=== PATIENT | female | born 1955 | race Caucasian/White ===

== ENCOUNTER 2024-07-14 12:40 | Emergency (ER) | payer OTHER ==
[~2024-07-14] VITALS: Ht 162.6 cm; Wt 113.6 kg
[2024-07-14 12:53] VITALS: TEMP 98.3
[2024-07-14] MEDS: LORazepam 1 MG TABLET PO ONE (16:03)
[2024-07-14 16:28] LABS: ANION GAP 9 mmol/L (8-16); BASOPHILS % (AUTO) 0.3 % (0.0-2.0); CALCIUM, TOTAL 8.8 mg/dL (8.8-10.5); CARBON DIOXIDE 29 mmol/L (22-29); CHLORIDE 102 mmol/L (98-107); CREATININE 1.02 mg/dL (0.60-1.30); EOSINOPHILS % (AUTO) 3.9 % (1.0-6.0); GLOMERULAR FILTR. RATE CALC 54 mL/min (>60); GLUCOSE,RANDOM 102 mg/dL (70-110); HEMATOCRIT 33.4 % (36-46); LYMPHOCYTES # (AUTO) 1.2 K/uL (1.0-4.8); LYMPHOCYTES % (AUTO) 31.2 % (22.0-44.0); MEAN CORPUSCULAR HEMOGLOBIN 30.5 pg (26.0-34.0); MEAN CORPUSCULAR VOLUME 92 fL (80-100); MONOCYTES # (AUTO) 0.5 K/uL (0.1-1.0); MONOCYTES % (AUTO) 12.8 % (2.0-9.0); NEUTROPHILS % (AUTO) 51.8 % (40.0-70.0); PLATELET COUNT (AUTO) 129 K/uL (150-450); POTASSIUM 4.2 mmol/L (3.5-5.1); RED BLOOD CELL COUNT(AUTO) 3.62 MIL/uL (4.00-5.20); RED CELL DISTRIBUTION WIDTH 14.4 % (11.5-14.5); SODIUM SERUM 140 mmol/L (136-145); UREA NITROGEN, BLOOD 24 mg/dL (7-18); WHITE BLOOD COUNT (AUTO) 3.8 K/uL (4.5-11.0)
[2024-07-14 16:36] LABS: ALCOHOL, BLOOD (SERUM) < 3 mg/dL (0-10)
[2024-07-14 19:41] VITALS: BP 123/66; PULSE 61; RESP 17
== END 2024-07-14 22:26 | disposition home or self-care (01) ==
LOC: EMS 12:40
DX: R51.9 Headache, unspecified (principal); F31.9 Bipolar disorder, unspecified; E11.9 Type 2 diabetes mellitus without complications; E78.00 Pure hypercholesterolemia, unspecified; I10 Essential (primary) hypertension; Z98.890 Other specified postprocedural states
CPT/HCPCS: 99283; 80048; 85025; 36415; G0480

== ENCOUNTER 2025-04-07 08:17 | Inpatient (IN) | payer OTHER ==
[~2025-04-07] VITALS: Ht 162.6 cm; Wt 122.1 kg
[2025-04-07 09:13] LABS: BASOPHILS % (AUTO) 0.6 % (0.0-2.0); EOSINOPHILS % (AUTO) 6.4 % (1.0-6.0); HEMATOCRIT 30.4 % (36-46); HEMOGLOBIN 10.2 g/dL (12.0-16.0); LYMPHOCYTES # (AUTO) 0.7 K/uL (1.0-4.8); LYMPHOCYTES % (AUTO) 21.4 % (22.0-44.0); MEAN CORPUSCULAR HEMOGLOBIN 29.6 pg (26.0-34.0); MEAN CORPUSCULAR HGB CONC 33.5 G/dL (31.0-37.0); MEAN CORPUSCULAR VOLUME 88 fL (80-100); MONOCYTES # (AUTO) 0.4 K/uL (0.1-1.0); MONOCYTES % (AUTO) 11.8 % (2.0-9.0); NEUTROPHILS # (AUTO) 1.9 K/uL (1.8-7.7); NEUTROPHILS % (AUTO) 59.8 % (40.0-70.0); PLATELET COUNT (AUTO) 119 K/uL (150-450); RED BLOOD CELL COUNT(AUTO) 3.45 MIL/uL (4.00-5.20); RED CELL DISTRIBUTION WIDTH 15.8 % (11.5-14.5); WHITE BLOOD COUNT (AUTO) 3.1 K/uL (4.5-11.0)
[2025-04-07 09:22] LABS: ANION GAP 8 mmol/L (8-16); CALCIUM, TOTAL 8.7 mg/dL (8.8-10.5); CARBON DIOXIDE 26 mmol/L (22-29); CHLORIDE 106 mmol/L (98-107); CREATININE 0.89 mg/dL (0.60-1.30); GLOMERULAR FILTR. RATE CALC > 60 mL/min (>60); GLUCOSE,RANDOM 120 mg/dL (70-110); POTASSIUM 4.2 mmol/L (3.5-5.1); SODIUM SERUM 140 mmol/L (136-145); UREA NITROGEN, BLOOD 36 mg/dL (7-18)
[2025-04-07 09:26] LABS: ACETAMINOPHEN < 2 mcg/mL (10-30); ALBUMIN 3.1 g/dL (3.4-5.0); BILIRUBIN,DIRECT 0.1 mg/dL (0.00-0.20); BILIRUBIN,TOTAL 0.4 mg/dL (0.1-1.0); TOTAL PROTEIN, SERUM 6.6 g/dL (6.4-8.2)
[2025-04-07] MEDS ORDERED: haloperidoL 5 MG TABLET PO PRN (09:30)
[2025-04-07] MEDS ORDERED: LORazepam 2 MG TABLET PO PRN (09:30)
[2025-04-07] MEDS ORDERED: ZOLPIDEM TARTRATE 10 MG TABLET PO PRN (09:30)
[2025-04-07 09:41] LABS: ALCOHOL, BLOOD (SERUM) < 3 mg/dL (0-10)
[2025-04-07 09:52] LABS: SALICYLATE 0.3 mg/dL (2.8-20.0)
[2025-04-07 10:23] LABS: COVID AG,FIA SOURCE NASAL SWAB
[2025-04-07 10:31] LABS: GLUCOMETER DEV NAME(LOC) ERT.7; GLUCOSE,POINT OF CARE 143 MG/DL (70-110)
[2025-04-07 10:42] LABS: SARS-COV2 (COVID) ANTIGEN,FIA Negative (Negative)
[2025-04-07 11:20] LABS: GLUCOMETER DEV NAME(LOC) ERT.7; GLUCOSE,POINT OF CARE 146 MG/DL (70-110)
[2025-04-07] MEDS: KETOROLAC TROMETHAMINE 60 MG/2 ML VIAL IM ONE (11:20)
[2025-04-07 11:51] LABS: APPEARANCE,URINE CLEAR (CLEAR); BILIRUBIN,URINE NEGATIVE (NEGATIVE); COLOR,URINE COLORLESS (YELLOW); GLUCOSE, URINE (UA) >=1000 mg/dL (NEGATIVE); KETONES,URINE NEGATIVE (NEGATIVE); LEUKOCYTE ESTERASE ,URINE NEGATIVE (NEGATIVE); NITRATE,URINE NEGATIVE (NEGATIVE); OCCULT BLOOD,URINE NEGATIVE (NEGATIVE); PROTEIN,URINE NEGATIVE (NEGATIVE); SPECIFIC GRAVITIY, URINE 1.009 (1.003-1.030); UROBILINOGEN,URINE <=1.0 mg/dL (<=1.0)
[2025-04-07 11:57] LABS: AMPHET/METH SCREEN,URINE NEGATIVE (NEGATIVE); BARBITURATE SCREEN, URINE NEGATIVE (NEGATIVE); BENZODIAZEPINES SCREEN,URINE NEGATIVE (NEGATIVE); CANNABINOID SCREEN,URINE NEGATIVE (NEGATIVE); COCAINE SCREEN,URINE NEGATIVE (NEGATIVE); METHADONE SCREEN, URINE NEGATIVE (NEGATIVE); OPIATE SCREEN,URINE NEGATIVE (NEGATIVE); PHENCYCLIDINE SCREEN,URINE NEGATIVE (NEGATIVE)
[2025-04-07 12:05] LABS: ALCOHOL, URINE DRUG SCREEN NEGATIVE (NEGATIVE)
[2025-04-07 12:12] LABS: BACTERIA,URINE None Seen /HPF (None Seen); RBC,URINE None Seen /HPF (0-2); SQUAMOUS EPITHELIAL CELL,UR Rare /LPF (None Seen); WBC,URINE None Seen /HPF (0-5)
[2025-04-07] MEDS ORDERED: DEXTROSE 50%-WATER 25 GM/50 ML SYRINGE IVP PRN ×2 (13:45)
[2025-04-07] MEDS ORDERED: ONDANSETRON HCL 4 MG/2 ML VIAL IVP PRN (13:45)
[2025-04-07] MEDS ORDERED: INSULIN LISPRO 100 UNITS/ML SQ PRN ×2 (13:45)
[2025-04-07] MEDS: SODIUM CHLORIDE 0.9% 1,000 ML IV ONE (13:49)
[2025-04-07] MEDS: PEG 3350/NA SULF,BICARB,CL/KCL 4000 ML SOLUTION PO ONE (13:49)
[2025-04-07] MEDS: HEPARIN SODIUM,PORCINE 5,000 UNITS/ML VIAL SQ SCH (15:32)
[2025-04-07 16:23] VITALS: BP 106/57; PULSE 66; RESP 19; TEMP 97.3; O2SAT 98
[2025-04-07 17:50] LABS: GLUCOMETER DEV NAME(LOC) 5N.2C; GLUCOSE,POINT OF CARE 97 MG/DL (70-110)
[2025-04-07 19:45] VITALS: BP 119/60; PULSE 60; RESP 19; TEMP 97.2; O2SAT 99
[2025-04-07] MEDS: DOCUSATE SODIUM 100 MG CAPSULE PO SCH (20:30)
[2025-04-08 00:13] VITALS: BP 104/52; PULSE 62; RESP 17; TEMP 97; O2SAT 96
[2025-04-08 04:05] VITALS: BP 122/59; PULSE 62; RESP 17; TEMP 97.2; O2SAT 96
[2025-04-08] MEDS: MORPHINE SULFATE 2 MG/ML SYRINGE IVP ONE (05:05)
[2025-04-08] MEDS: ASPIRIN 81 MG CHEWABLE TABLET PO SCH (08:00)
[2025-04-08] MEDS: ATORVASTATIN CALCIUM 20 MG TABLET PO SCH (08:00)
[2025-04-08] MEDS: FAMOTIDINE 20 MG TABLET PO SCH (08:00)
[2025-04-08 08:13] VITALS: BP 115/62; PULSE 64; RESP 16; TEMP 97.6; O2SAT 96
[2025-04-08 08:15] LABS: ALANINE AMINOTRANSFERASE 18 U/L (12-78); ALBUMIN 2.7 g/dL (3.4-5.0); ALKALINE PHOSPHATASE 62 U/L (46-116); ANION GAP 7 mmol/L (8-16); ASPARTATE AMINOTRANSFERASE 19 U/L (15-37); BILIRUBIN,TOTAL 0.5 mg/dL (0.1-1.0); CALCIUM, TOTAL 8.4 mg/dL (8.8-10.5); CARBON DIOXIDE 25 mmol/L (22-29); CHLORIDE 107 mmol/L (98-107); CHOL/HDL RATIO 1.9 (3.9-5.7); CHOLESTEROL 107 mg/dL (131-200); CREATININE 0.77 mg/dL (0.60-1.30); GLOMERULAR FILTR. RATE CALC > 60 mL/min (>60); GLUCOSE,RANDOM 114 mg/dL (70-110); HDL CHOLESTEROL 55 mg/dL (40-60); LDL CHOL (CALC.) 34 mg/dL (0-130); POTASSIUM 4.5 mmol/L (3.5-5.1); SODIUM SERUM 139 mmol/L (136-145); TOTAL PROTEIN, SERUM 5.8 g/dL (6.4-8.2); TRIGLYCERIDES 91 mg/dL (15-150); UREA NITROGEN, BLOOD 34 mg/dL (7-18)
[2025-04-08 11:16] LABS: GLUCOMETER DEV NAME(LOC) 5N.2C; GLUCOSE,POINT OF CARE 124 MG/DL (70-110)
[2025-04-08 11:16] LABS: GLUCOMETER DEV NAME(LOC) 5N.2C; GLUCOSE,POINT OF CARE 112 MG/DL (70-110)
[2025-04-08 12:00] VITALS: BP 117/52; PULSE 62; RESP 18; TEMP 97.7; O2SAT 98
[2025-04-08] MEDS: ACETAMINOPHEN 325 MG TABLET PO PRN (13:40)
[2025-04-08 16:01] VITALS: BP 112/58; PULSE 65; RESP 18; TEMP 98.4; O2SAT 98
[2025-04-08 20:08] VITALS: BP 117/63; PULSE 66; RESP 19; TEMP 98.4; O2SAT 98
[2025-04-08] MEDS: KETOROLAC TROMETHAMINE 30 MG/ML VIAL IVP ONE (22:11)
[2025-04-09] VITALS (7 sets, daily range): BP systolic 120–146; BP diastolic 50–69; PULSE 57–73; RESP 17–18; TEMP 97.7–99.5; O2SAT 95–97
[2025-04-09 07:08] LABS: BASOPHILS % (AUTO) 0.3 % (0.0-2.0); EOSINOPHILS % (AUTO) 3.5 % (1.0-6.0); HEMATOCRIT 30.1 % (36-46); HEMOGLOBIN 9.9 g/dL (12.0-16.0); LYMPHOCYTES # (AUTO) 0.6 K/uL (1.0-4.8); LYMPHOCYTES % (AUTO) 16.4 % (22.0-44.0); MEAN CORPUSCULAR HEMOGLOBIN 29.3 pg (26.0-34.0); MEAN CORPUSCULAR HGB CONC 32.9 G/dL (31.0-37.0); MEAN CORPUSCULAR VOLUME 89 fL (80-100); MONOCYTES # (AUTO) 0.4 K/uL (0.1-1.0); MONOCYTES % (AUTO) 10.8 % (2.0-9.0); NEUTROPHILS # (AUTO) 2.3 K/uL (1.8-7.7); PLATELET COUNT (AUTO) 110 K/uL (150-450); RED BLOOD CELL COUNT(AUTO) 3.38 MIL/uL (4.00-5.20); RED CELL DISTRIBUTION WIDTH 15.9 % (11.5-14.5); WHITE BLOOD COUNT (AUTO) 3.4 K/uL (4.5-11.0)
[2025-04-09 07:19] LABS: ANION GAP 5 mmol/L (8-16); CALCIUM, TOTAL 8.7 mg/dL (8.8-10.5); CARBON DIOXIDE 29 mmol/L (22-29); CHLORIDE 103 mmol/L (98-107); CREATININE 0.79 mg/dL (0.60-1.30); GLOMERULAR FILTR. RATE CALC > 60 mL/min (>60); GLUCOSE,RANDOM 112 mg/dL (70-110); POTASSIUM 4.7 mmol/L (3.5-5.1); SODIUM SERUM 137 mmol/L (136-145); UREA NITROGEN, BLOOD 33 mg/dL (7-18)
[2025-04-09] MEDS: TraMADol HCL 50 MG TABLET PO PRN (13:22)
[2025-04-09 16:56] LABS: GLUCOMETER DEV NAME(LOC) 5S.2D; GLUCOSE,POINT OF CARE 108 MG/DL (70-110)
[2025-04-09 16:56] LABS: GLUCOMETER DEV NAME(LOC) 5S.2D; GLUCOSE,POINT OF CARE 111 MG/DL (70-110)
[2025-04-09 16:56] LABS: GLUCOMETER DEV NAME(LOC) 5S.2D; GLUCOSE,POINT OF CARE 116 MG/DL (70-110)
[2025-04-09 16:56] LABS: GLUCOMETER DEV NAME(LOC) 5S.2D; GLUCOSE,POINT OF CARE 110 MG/DL (70-110)
[2025-04-09 23:56] LABS: GLUCOMETER DEV NAME(LOC) 5N.1D; GLUCOSE,POINT OF CARE 124 MG/DL (70-110)
[2025-04-09 23:56] LABS: GLUCOMETER DEV NAME(LOC) 5N.1D; GLUCOSE,POINT OF CARE 121 MG/DL (70-110)
[2025-04-10 01:16] LABS: GLUCOMETER DEV NAME(LOC) 5S.2D; GLUCOSE,POINT OF CARE 125 MG/DL (70-110)
[2025-04-10 03:54] VITALS: BP 119/56; PULSE 64; RESP 18; TEMP 98.4; O2SAT 96
[2025-04-10 07:11] VITALS: BP 126/90; PULSE 66; RESP 18; TEMP 98.4; O2SAT 96
[2025-04-10 08:41] LABS: GLUCOMETER DEV NAME(LOC) 5N.2C; GLUCOSE,POINT OF CARE 114 MG/DL (70-110)
[2025-04-10 11:30] LABS: GLUCOMETER DEV NAME(LOC) 5N.2C; GLUCOSE,POINT OF CARE 106 MG/DL (70-110)
[2025-04-10 16:04] VITALS: BP 120/94; PULSE 70; RESP 18; TEMP 98.8; O2SAT 97
[2025-04-10 18:20] LABS: GLUCOMETER DEV NAME(LOC) 5S.2D; GLUCOSE,POINT OF CARE 104 MG/DL (70-110)
[2025-04-10 19:38] VITALS: BP 137/60; PULSE 66; RESP 16; TEMP 98.6; O2SAT 95
[2025-04-11 00:24] VITALS: BP 131/57; PULSE 65; RESP 17; TEMP 98.6; O2SAT 95
[2025-04-11 04:48] VITALS: BP 124/50; PULSE 66; RESP 18; TEMP 98.8; O2SAT 95
[2025-04-11 06:36] LABS: GLUCOMETER DEV NAME(LOC) 5S.2D; GLUCOSE,POINT OF CARE 123 MG/DL (70-110)
[2025-04-11 07:46] VITALS: BP 147/70; PULSE 63; RESP 18; TEMP 98.8; O2SAT 98
[2025-04-11 11:08] VITALS: BP 133/46; PULSE 63; RESP 19; TEMP 98.4; O2SAT 96
[2025-04-11 11:31] LABS: GLUCOMETER DEV NAME(LOC) 5N.2C; GLUCOSE,POINT OF CARE 133 MG/DL (70-110)
[2025-04-11 13:31] LABS: COVID AG,FIA SOURCE NASAL SWAB
[2025-04-11 13:48] LABS: SARS-COV2 (COVID) ANTIGEN,FIA Negative (Negative)
[2025-04-12] MEDS ORDERED: QUET400T13 PO (09:48)
[2025-04-12] MEDS ORDERED: FLUO40CA PO (09:48)
== END 2025-04-11 15:58 | DRG 918 ==
LOC: EMS 08:22 → EDH 14:16 → 5N 16:50 → 5S 04-08 01:59
PROVIDERS: ADMIT Internal Medicine; ATTEND Internal Medicine
DX: T43.592A Poisoning by other antipsychotics and neuroleptics, intentional self-harm, initial encounter (principal); R45.851 Suicidal ideations; F32.2 Major depressive disorder, single episode, severe without psychotic features; Z68.42 Body mass index [BMI] 45.0-49.9, adult; T39.1X2A Poisoning by 4-Aminophenol derivatives, intentional self-harm, initial encounter; Z20.822 Contact with and (suspected) exposure to COVID-19; E11.9 Type 2 diabetes mellitus without complications; F25.1 Schizoaffective disorder, depressive type; Z60.2 Problems related to living alone; E66.01 Morbid (severe) obesity due to excess calories; I10 Essential (primary) hypertension; E78.00 Pure hypercholesterolemia, unspecified; F25.9 Schizoaffective disorder, unspecified; Y92.89 Other specified places as the place of occurrence of the external cause; Z88.2 Allergy status to sulfonamides; Z83.3 Family history of diabetes mellitus
CPT/HCPCS: 80048; 80053; 80061; 80076; 80307; 81001; 82962; 83036; 85025; 93005; 93306; 96360; 96372; 97161; 97166; 97530; 97535; 99285; G0480; G0481; J1644; J1885; J2270; 36415-L1; 36415-TC

== ENCOUNTER 2025-04-11 13:07 | Inpatient (IN) | payer MEDICARE, MEDICAID ==
[~2025-04-11] VITALS: Ht 162.6 cm; Wt 126.0 kg
[2025-04-11] MEDS ORDERED: ZOLPIDEM TARTRATE 10 MG TABLET PO PRN (14:15)
[2025-04-11] MEDS ORDERED: LORazepam 2 MG TABLET PO PRN (14:15)
[2025-04-11] MEDS ORDERED: haloperidoL 5 MG TABLET PO PRN (14:15)
[2025-04-11 17:27] VITALS: BP 140/75; PULSE 67; RESP 18; TEMP 97.8; O2SAT 96
[2025-04-11] MEDS ORDERED: CloNIDine HCL 0.1 MG TABLET PO PRN (20:00)
[2025-04-11] MEDS ORDERED: GuaiFENesin/D-METHORPHAN [SUGAR-FREE] 200-20MG/10 ML SYRUP UDCUP PO PRN (20:00)
[2025-04-11] MEDS ORDERED: MAG HYDROX/ALUMINUM HYD/SIMETH ES 30 ML SUSPENSION UDCUP PO PRN (20:00)
[2025-04-11] MEDS ORDERED: LOPERAMIDE HCL 2 MG CAPSULE PO PRN (20:00)
[2025-04-11] MEDS ORDERED: ALBUTEROL SULFATE HFA 90 MCG/PUFF 8 GM INHALER IH PRN (20:00)
[2025-04-11] MEDS ORDERED: ONDANSETRON 4 MG TABLET PO PRN (20:00)
[2025-04-11] MEDS ORDERED: MAGNESIUM HYDROXIDE SUSPENSION 30 ML UDCUP PO PRN (20:00)
[2025-04-11] MEDS ORDERED: PETROLATUM,WHITE 28 GM JELLY TP PRN (20:00)
[2025-04-11] MEDS ORDERED: DOCUSATE SODIUM 100 MG CAPSULE PO PRN (20:00)
[2025-04-11] MEDS ORDERED: NICOTINE 14 MG/24 HOUR PATCH TD PRN (20:00)
[2025-04-11 21:00] VITALS: BP 124/60; PULSE 71; RESP 18; TEMP 97.6; O2SAT 97
[2025-04-11] MEDS: ACETAMINOPHEN 325 MG TABLET PO PRN (21:03)
[2025-04-11 22:03] VITALS: RESP 18
[2025-04-12] MEDS ORDERED: DEXTROSE 50%-WATER 25 GM/50 ML SYRINGE IVP PRN (06:15)
[2025-04-12] MEDS: INSULIN LISPRO 100 UNITS/ML SQ PRN (06:54)
[2025-04-12 07:10] LABS: GLUCOMETER DEV NAME(LOC) 3EX.2; GLUCOSE,POINT OF CARE 135 MG/DL (70-110)
[2025-04-12 07:42] LABS: HEMOGLOBIN A1C 5.1 % (3.8-5.6)
[2025-04-12 07:48] LABS: CHOL/HDL RATIO 1.9 (3.9-5.7)
[2025-04-12 08:00] VITALS: BP 125/72; PULSE 64; RESP 16; TEMP 99.3; O2SAT 96
[2025-04-12] MEDS: ATORVASTATIN CALCIUM 20 MG TABLET PO SCH (08:19)
[2025-04-12] MEDS: ASPIRIN 81 MG CHEWABLE TABLET PO SCH (08:19)
[2025-04-12] MEDS: FAMOTIDINE 20 MG TABLET PO SCH (08:20)
[2025-04-12] MEDS: DOCUSATE SODIUM 100 MG CAPSULE PO SCH (08:26)
[2025-04-12] MEDS ORDERED: FLUO40CA PO (09:48)
[2025-04-12] MEDS ORDERED: QUET400T13 PO (09:48)
[2025-04-12] MEDS: FLUoxetine HCL 20 MG CAPSULE PO SCH (11:09)
[2025-04-12] MEDS: IBUPROFEN 400 MG TABLET PO PRN (12:05)
[2025-04-12 12:16] LABS: GLUCOMETER DEV NAME(LOC) 3E.I 2; GLUCOSE,POINT OF CARE 132 MG/DL (70-110)
[2025-04-12 16:46] LABS: GLUCOMETER DEV NAME(LOC) 3E.I 2; GLUCOSE,POINT OF CARE 120 MG/DL (70-110)
[2025-04-12] MEDS: QUEtiapine FUMARATE 200 MG TABLET PO SCH (21:09)
[2025-04-12 21:11] VITALS: BP 118/51; PULSE 63; RESP 18; TEMP 98.4; O2SAT 94
[2025-04-12 21:35] LABS: GLUCOMETER DEV NAME(LOC) 3E.I 2; GLUCOSE,POINT OF CARE 112 MG/DL (70-110)
[2025-04-13 06:46] LABS: GLUCOMETER DEV NAME(LOC) 3E.I 2; GLUCOSE,POINT OF CARE 118 MG/DL (70-110)
[2025-04-13] MEDS: EMPAGLIFLOZIN 25 MG TABLET PO SCH (08:29)
[2025-04-13] MEDS: PIOGLITAZONE HCL 30 MG TABLET PO SCH (08:29)
[2025-04-13] MEDS: SitaGLIPtin PHOSPHATE 100 MG TABLET PO SCH (08:29)
[2025-04-13 09:20] VITALS: BP 153/61; PULSE 62; RESP 18; TEMP 98.6; O2SAT 97
[2025-04-13 11:04] VITALS: BP 140/70; PULSE 66; RESP 18; TEMP 97; O2SAT 97
[2025-04-13] MEDS: TraMADol HCL 50 MG TABLET PO PRN (11:09)
[2025-04-13 11:45] LABS: GLUCOMETER DEV NAME(LOC) 3E.I 2; GLUCOSE,POINT OF CARE 111 MG/DL (70-110)
[2025-04-13 17:01] LABS: GLUCOMETER DEV NAME(LOC) 3E.I 2; GLUCOSE,POINT OF CARE 112 MG/DL (70-110)
[2025-04-13 17:01] LABS: GLUCOMETER DEV NAME(LOC) 3EX.2; GLUCOSE,POINT OF CARE 113 MG/DL (70-110)
[2025-04-13 20:31] LABS: GLUCOMETER DEV NAME(LOC) 3EX.2; GLUCOSE,POINT OF CARE 97 MG/DL (70-110)
[2025-04-13 21:51] VITALS: BP 141/66; PULSE 66; RESP 16; TEMP 97.5; O2SAT 100
[2025-04-14 05:46] LABS: GLUCOMETER DEV NAME(LOC) 3E.I 2; GLUCOSE,POINT OF CARE 124 MG/DL (70-110)
[2025-04-14 08:30] VITALS: BP 110/94; PULSE 68; RESP 18; O2SAT 96
[2025-04-14 11:41] LABS: GLUCOMETER DEV NAME(LOC) 3E.I 2; GLUCOSE,POINT OF CARE 102 MG/DL (70-110)
[2025-04-14 17:45] LABS: GLUCOMETER DEV NAME(LOC) 3E.I 2; GLUCOSE,POINT OF CARE 112 MG/DL (70-110)
[2025-04-14 21:20] VITALS: BP 137/60; PULSE 66; RESP 18; TEMP 98.4; O2SAT 98
[2025-04-14 22:07] VITALS: BP 137/60; PULSE 66; RESP 18; TEMP 98.4; O2SAT 98
[2025-04-14 22:16] LABS: GLUCOMETER DEV NAME(LOC) 3E.I 2; GLUCOSE,POINT OF CARE 125 MG/DL (70-110)
[2025-04-14 22:20] VITALS: RESP 18
[2025-04-15 08:31] LABS: ANION GAP 8 mmol/L (8-16); CALCIUM, TOTAL 8.7 mg/dL (8.8-10.5); CARBON DIOXIDE 28 mmol/L (22-29); CHLORIDE 109 mmol/L (98-107); GLOMERULAR FILTR. RATE CALC > 60 mL/min (>60); GLUCOSE,RANDOM 126 mg/dL (70-110); SODIUM SERUM 145 mmol/L (136-145); UREA NITROGEN, BLOOD 28 mg/dL (7-18)
[2025-04-15] MEDS: NYSTATIN 30 GM OINTMENT TP SCH (10:35)
[2025-04-15 10:40] VITALS: BP 129/65; PULSE 68; RESP 18; TEMP 97.7; O2SAT 97
[2025-04-15] MEDS: levoFLOXacin 500 MG TABLET PO SCH (11:02)
[2025-04-15 12:25] LABS: GLUCOMETER DEV NAME(LOC) 3E.I 2; GLUCOSE,POINT OF CARE 117 MG/DL (70-110)
[2025-04-15 12:30] LABS: GLUCOMETER DEV NAME(LOC) 3E.I 2; GLUCOSE,POINT OF CARE 132 MG/DL (70-110)
[2025-04-15 20:50] VITALS: BP 139/49; PULSE 70; RESP 18; TEMP 98.5; O2SAT 98
[2025-04-15 22:41] LABS: GLUCOMETER DEV NAME(LOC) 3E.I 2; GLUCOSE,POINT OF CARE 119 MG/DL (70-110)
[2025-04-15 23:15] VITALS: BP 120/76; PULSE 73; RESP 20; TEMP 97.6; O2SAT 97
[2025-04-15 23:19] VITALS: RESP 18
[2025-04-16 06:21] LABS: GLUCOMETER DEV NAME(LOC) 3E.I 2; GLUCOSE,POINT OF CARE 116 MG/DL (70-110)
[2025-04-16 09:29] VITALS: BP 135/69; PULSE 70; RESP 18; TEMP 97.7; O2SAT 96
[2025-04-16 11:50] LABS: GLUCOMETER DEV NAME(LOC) 3E.I 2; GLUCOSE,POINT OF CARE 157 MG/DL (70-110)
[2025-04-16 17:10] LABS: GLUCOMETER DEV NAME(LOC) 3E.I 2; GLUCOSE,POINT OF CARE 122 MG/DL (70-110)
[2025-04-16 20:50] LABS: GLUCOMETER DEV NAME(LOC) 3E.I 2; GLUCOSE,POINT OF CARE 129 MG/DL (70-110)
[2025-04-16 21:50] VITALS: BP 119/55; PULSE 72; RESP 18; TEMP 97.5; O2SAT 99
[2025-04-17 06:00] LABS: GLUCOMETER DEV NAME(LOC) 3E.I 2; GLUCOSE,POINT OF CARE 126 MG/DL (70-110)
[2025-04-17 08:05] VITALS: BP 140/73; PULSE 81; RESP 18; TEMP 97.8; O2SAT 96
[2025-04-17 11:46] LABS: GLUCOMETER DEV NAME(LOC) 3E.I 2; GLUCOSE,POINT OF CARE 113 MG/DL (70-110)
[2025-04-17 16:51] LABS: GLUCOMETER DEV NAME(LOC) 3E.I 2; GLUCOSE,POINT OF CARE 119 MG/DL (70-110)
[2025-04-17 21:04] VITALS: BP 118/64; PULSE 71; RESP 18; TEMP 97.1; O2SAT 98
[2025-04-17 21:05] LABS: GLUCOMETER DEV NAME(LOC) 3EX.2; GLUCOSE,POINT OF CARE 139 MG/DL (70-110)
[2025-04-17 21:20] VITALS: BP 120/71; PULSE 75; RESP 18; TEMP 97.6; O2SAT 97
[2025-04-18 06:40] LABS: GLUCOMETER DEV NAME(LOC) 3EX.2; GLUCOSE,POINT OF CARE 114 MG/DL (70-110)
[2025-04-18 10:42] VITALS: BP 105/63; PULSE 51; RESP 16; TEMP 96.7; O2SAT 97
[2025-04-18 16:50] LABS: GLUCOMETER DEV NAME(LOC) 3EX.2; GLUCOSE,POINT OF CARE 104 MG/DL (70-110)
[2025-04-18 20:20] LABS: GLUCOMETER DEV NAME(LOC) 3EX.2; GLUCOSE,POINT OF CARE 95 MG/DL (70-110)
[2025-04-18 20:30] VITALS: BP 137/67; PULSE 63; RESP 18; TEMP 97.4
[2025-04-19 05:51] LABS: GLUCOMETER DEV NAME(LOC) 3EX.2; GLUCOSE,POINT OF CARE 110 MG/DL (70-110)
[2025-04-19 09:01] VITALS: BP 129/70; PULSE 66; RESP 16; TEMP 96.7; O2SAT 99
[2025-04-19] MEDS ORDERED: PIOG30TA10 PO (10:20)
[2025-04-19] MEDS ORDERED: ATOR20TA65 PO (10:20)
[2025-04-19] MEDS ORDERED: FAMO20 PO (10:20)
[2025-04-19] MEDS ORDERED: EMPA25TA3 PO (10:20)
[2025-04-19] MEDS ORDERED: QUET200T30 PO (10:20)
[2025-04-19] MEDS ORDERED: ASPI-1450 PO (10:20)
[2025-04-19] MEDS ORDERED: FLUO-418 PO (10:20)
[2025-04-19] MEDS ORDERED: SITA100 PO (10:20)
[2025-04-19 11:56] LABS: GLUCOMETER DEV NAME(LOC) 3EX.2; GLUCOSE,POINT OF CARE 116 MG/DL (70-110)
[2025-04-19 16:36] LABS: GLUCOMETER DEV NAME(LOC) 3EX.2; GLUCOSE,POINT OF CARE 170 MG/DL (70-110)
== END 2025-04-19 17:58 | disposition home health service (06) | DRG 885 ==
LOC: 3EI 16:00
PROVIDERS: ADMIT Psychiatry & Neurology Psychiatry; ATTEND Psychiatry & Neurology Psychiatry
PROC: GZHZZZZ Group Psychotherapy (ICD-10-PCS; principal; 2025-04-12)
PROC: GZ51ZZZ Individual Psychotherapy, Behavioral (ICD-10-PCS; 2025-04-12)
DX: F25.1 Schizoaffective disorder, depressive type (principal); T43.592A Poisoning by other antipsychotics and neuroleptics, intentional self-harm, initial encounter; Z68.42 Body mass index [BMI] 45.0-49.9, adult; I10 Essential (primary) hypertension; E66.01 Morbid (severe) obesity due to excess calories; E11.9 Type 2 diabetes mellitus without complications; B36.9 Superficial mycosis, unspecified; E78.5 Hyperlipidemia, unspecified; M25.552 Pain in left hip; G89.29 Other chronic pain; Z79.899 Other long term (current) drug therapy; Z88.2 Allergy status to sulfonamides; Z91.51 Personal history of suicidal behavior
CPT/HCPCS: 80048; 80061; 82962; 83036; 84443

== ENCOUNTER 2025-05-21 15:49 | Emergency (ER) | payer MEDICARE, MEDICAID ==
[~2025-05-21] VITALS: Ht 162.6 cm; Wt 127.3 kg
[~2025-05-21 15:49] MED LIST: ASPI-1450 PO; ATOR20TA65 PO; EMPA25TA3 PO; FAMO20 PO; FLUO-418 PO; PIOG30TA10 PO; QUET200T30 PO; SITA100 PO
[2025-05-21 15:54] VITALS: BP 130/44; PULSE 69; RESP 20; TEMP 98.9; O2SAT 96
[2025-05-21] MEDS ORDERED: ARIP5TAB37 PO (16:12)
[2025-05-21] MEDS: KETOROLAC TROMETHAMINE 30 MG/ML VIAL IM ONE (16:22)
[2025-05-21] MEDS: HYDROCODONE/ACETAMINOPHEN 5-325 MG TABLET PO ONE (16:22)
[2025-05-21] MEDS: LIDOCAINE 5% TRANSDERMAL PATCH TD ONE (16:23)
[2025-05-21] MEDS: FLUCONAZOLE 150 MG TABLET PO ONE (16:23)
[2025-05-21] MEDS ORDERED: LIDO-57 TP (16:24)
[2025-05-21] MEDS ORDERED: IBUP-1492 PO (16:24)
== END 2025-05-21 17:26 | disposition home or self-care (01) ==
LOC: EMS 15:51
DX: M25.552 Pain in left hip (principal); F31.9 Bipolar disorder, unspecified; E11.9 Type 2 diabetes mellitus without complications; E78.00 Pure hypercholesterolemia, unspecified; I10 Essential (primary) hypertension; G89.29 Other chronic pain; Z79.82 Long term (current) use of aspirin; Z88.2 Allergy status to sulfonamides; Z79.899 Other long term (current) drug therapy; Z98.890 Other specified postprocedural states
CPT/HCPCS: 99284; 96372; J1885

== ENCOUNTER 2025-05-24 15:28 | Emergency (ER) | payer OTHER ==
[~2025-05-24] VITALS: Ht 162.6 cm; Wt 112.7 kg
[~2025-05-24 15:28] MED LIST changes: +ARIP5TAB37 PO; +IBUP-1492 PO; +LIDO-57 TP
[2025-05-24 15:37] VITALS: TEMP 98.7
[2025-05-24 15:38] VITALS: BP 141/70; PULSE 78; RESP 17; O2SAT 97
[2025-05-24] MEDS ORDERED: TRAM50TA5 PO (15:39)
[2025-05-24] MEDS: KETOROLAC TROMETHAMINE 30 MG/ML VIAL IM ONE (15:43)
[2025-05-24] MEDS: HYDROCODONE/ACETAMINOPHEN 5-325 MG TABLET PO ONE (15:43)
[2025-05-24] MEDS: LIDOCAINE 5% TRANSDERMAL PATCH TD ONE (15:44)
== END 2025-05-24 18:18 | disposition home or self-care (01) ==
LOC: EMS 15:47
DX: M25.552 Pain in left hip (principal); E11.9 Type 2 diabetes mellitus without complications; I10 Essential (primary) hypertension; E78.00 Pure hypercholesterolemia, unspecified; F31.9 Bipolar disorder, unspecified; Z79.82 Long term (current) use of aspirin; Z79.84 Long term (current) use of oral hypoglycemic drugs; Z88.2 Allergy status to sulfonamides; Z79.899 Other long term (current) drug therapy
CPT/HCPCS: 99283; 96372; J1885

== ENCOUNTER 2025-05-27 18:55 | Emergency (ER) | payer OTHER ==
[~2025-05-27] VITALS: Ht 162.6 cm; Wt 92.0 kg
[~2025-05-27 18:55] MED LIST changes: +TRAM50TA5 PO
[2025-05-27 19:01] VITALS: BP 140/60; PULSE 88; RESP 16; TEMP 98.2; O2SAT 98
[2025-05-27] MEDS: HYDROCODONE/ACETAMINOPHEN 5-325 MG TABLET PO ONE (22:55)
[2025-05-27] MEDS: KETOROLAC TROMETHAMINE 30 MG/ML VIAL IM ONE (22:55)
[2025-05-27] MEDS: LIDOCAINE 5% TRANSDERMAL PATCH TD ONE (22:56)
== END 2025-05-28 01:41 | disposition home or self-care (01) ==
LOC: EMS 18:55
DX: M25.552 Pain in left hip (principal); G89.29 Other chronic pain; E11.9 Type 2 diabetes mellitus without complications; E78.00 Pure hypercholesterolemia, unspecified; F31.9 Bipolar disorder, unspecified; I10 Essential (primary) hypertension; Z88.2 Allergy status to sulfonamides; Z79.82 Long term (current) use of aspirin; Z79.899 Other long term (current) drug therapy
CPT/HCPCS: 99283; 96372; J1885

== ENCOUNTER 2025-05-29 22:21 | Emergency (ER) | payer OTHER ==
[~2025-05-29] VITALS: Ht 162.6 cm; Wt 127.3 kg
[2025-05-29 22:24] VITALS: TEMP 98.7
[2025-05-29] MEDS: KETOROLAC TROMETHAMINE 60 MG/2 ML VIAL IM ONE (23:54)
[2025-05-30] MEDS ORDERED: KETO10TA2 PO (01:20)
[2025-05-30 05:12] VITALS: BP 152/60; PULSE 60; RESP 16; O2SAT 97
== END 2025-05-30 05:18 | disposition home or self-care (01) ==
LOC: EMS 22:21
DX: M16.12 Unilateral primary osteoarthritis, left hip (principal); M25.552 Pain in left hip; E11.9 Type 2 diabetes mellitus without complications; I10 Essential (primary) hypertension; E78.00 Pure hypercholesterolemia, unspecified; F31.9 Bipolar disorder, unspecified; Z98.890 Other specified postprocedural states; Z88.2 Allergy status to sulfonamides; Z79.82 Long term (current) use of aspirin; Z79.899 Other long term (current) drug therapy
CPT/HCPCS: 99283; 73503; 96372; J1885

== ENCOUNTER 2025-06-01 22:14 | Emergency (ER) | payer OTHER ==
[~2025-06-01] VITALS: Ht 162.6 cm; Wt 130.9 kg
[~2025-06-01 22:14] MED LIST changes: +KETO10TA2 PO
[2025-06-01 22:20] VITALS: TEMP 98.5
[2025-06-01] MEDS: KETOROLAC TROMETHAMINE 60 MG/2 ML VIAL IM ONE (23:43)
[2025-06-01] MEDS ORDERED: MELO-107 PO (23:47)
[2025-06-02 01:13] VITALS: BP 144/80; PULSE 69; RESP 14; O2SAT 99
== END 2025-06-02 03:05 | disposition home or self-care (01) ==
LOC: EMS 22:24
DX: M16.12 Unilateral primary osteoarthritis, left hip (principal); I10 Essential (primary) hypertension; E11.9 Type 2 diabetes mellitus without complications; E78.00 Pure hypercholesterolemia, unspecified; F31.9 Bipolar disorder, unspecified; Z88.2 Allergy status to sulfonamides; Z79.1 Long term (current) use of non-steroidal anti-inflammatories (NSAID); Z79.82 Long term (current) use of aspirin; Z79.84 Long term (current) use of oral hypoglycemic drugs; Z79.899 Other long term (current) drug therapy
CPT/HCPCS: 99283; 96372; J1885

== ENCOUNTER 2025-06-02 21:06 | Emergency (ER) | payer OTHER ==
[~2025-06-02] VITALS: Ht 162.6 cm; Wt 130.9 kg
[~2025-06-02 21:06] MED LIST changes: +MELO-107 PO
[2025-06-02 21:29] VITALS: BP 176/90; PULSE 72; RESP 18; TEMP 97.9; O2SAT 97
[2025-06-02] MEDS: KETOROLAC TROMETHAMINE 15 MG/ML VIAL IM ONE (23:14)
[2025-06-02] MEDS ORDERED: KETOROLAC TROMETHAMINE 30 MG/ML VIAL IM ONE (23:15)
== END 2025-06-03 | disposition home or self-care (01) ==
LOC: EMS 21:08
DX: G89.29 Other chronic pain (principal); M25.552 Pain in left hip; E11.9 Type 2 diabetes mellitus without complications; I10 Essential (primary) hypertension; E78.00 Pure hypercholesterolemia, unspecified; F31.9 Bipolar disorder, unspecified; Z79.1 Long term (current) use of non-steroidal anti-inflammatories (NSAID); Z79.82 Long term (current) use of aspirin; Z79.84 Long term (current) use of oral hypoglycemic drugs; Z88.2 Allergy status to sulfonamides; Z79.899 Other long term (current) drug therapy
CPT/HCPCS: 99283; 96372; J1885

== ENCOUNTER 2025-09-18 21:46 | Emergency (ER) | payer OTHER, MEDICAID ==
[~2025-09-18] VITALS: Ht 162.6 cm; Wt 109.0 kg
[2025-09-18 22:14] VITALS: TEMP 98.7
[2025-09-19] MEDS ORDERED: DOXY-354 PO (05:39)
[2025-09-19] MEDS: CefTRIAXone SODIUM 1 GM/VIAL IM ONE (06:18)
[2025-09-19] MEDS: LIDOCAINE/PF 1% 2 ML VIAL IM ONE (06:18)
[2025-09-19 09:03] VITALS: BP 143/74; PULSE 70; RESP 18; O2SAT 98
== END 2025-09-19 09:08 | disposition home or self-care (01) ==
LOC: EMS 21:46
DX: L03.116 Cellulitis of left lower limb (principal); E11.9 Type 2 diabetes mellitus without complications; E78.00 Pure hypercholesterolemia, unspecified; F31.9 Bipolar disorder, unspecified; I10 Essential (primary) hypertension; Z79.1 Long term (current) use of non-steroidal anti-inflammatories (NSAID); Z79.82 Long term (current) use of aspirin; Z88.2 Allergy status to sulfonamides; Z98.890 Other specified postprocedural states; Z79.899 Other long term (current) drug therapy
CPT/HCPCS: 99283; 82962; 96372; J0696; J3490

== ENCOUNTER 2025-11-06 09:40 | Emergency (ER) | payer OTHER ==
[~2025-11-06] VITALS: Ht 162.6 cm; Wt 111.8 kg
[~2025-11-06 09:40] MED LIST changes: +DOXY-354 PO
[2025-11-06 09:43] VITALS: TEMP 98.3
[2025-11-06 10:46] LABS: PLATELET COUNT (AUTO) 175 K/uL (150-450); RED BLOOD CELL COUNT(AUTO) 4.05 MIL/uL (4.00-5.20); RED CELL DISTRIBUTION WIDTH 16.9 % (11.5-14.5); WHITE BLOOD COUNT (AUTO) 4.0 K/uL (4.5-11.0)
[2025-11-06 10:47] LABS: CALCIUM, TOTAL 9.7 mg/dL (8.8-10.5); CREATININE 0.89 mg/dL (0.60-1.30); GLOMERULAR FILTR. RATE CALC > 60 mL/min (>60); GLUCOSE,RANDOM 150 mg/dL (70-110); SODIUM SERUM 137 mmol/L (136-145); UREA NITROGEN, BLOOD 20 mg/dL (7-18)
[2025-11-06] MEDS ORDERED: CEPH-558 PO (13:23)
[2025-11-06 13:29] VITALS: BP 146/86; PULSE 76; RESP 18; O2SAT 96
== END 2025-11-06 13:48 | disposition home or self-care (01) ==
LOC: EMS 09:41
DX: S81.802A Unspecified open wound, left lower leg, initial encounter (principal); L29.9 Pruritus, unspecified; E11.9 Type 2 diabetes mellitus without complications; E78.00 Pure hypercholesterolemia, unspecified; F31.9 Bipolar disorder, unspecified; I10 Essential (primary) hypertension; Z88.2 Allergy status to sulfonamides; Z79.1 Long term (current) use of non-steroidal anti-inflammatories (NSAID); Z79.82 Long term (current) use of aspirin; Z98.890 Other specified postprocedural states; Z79.899 Other long term (current) drug therapy; X58.XXXA Exposure to other specified factors, initial encounter; Y93.89 Activity, other specified; Y92.89 Other specified places as the place of occurrence of the external cause; Y99.8 Other external cause status
CPT/HCPCS: 71045; 80048; 82962; 85025; 93005; 99285; 36415-L1; 36415-TC